=== PATIENT | female | born 1980 | race Caucasian/White ===

== ENCOUNTER → 2020-09-18 16:55 | Outpatient (CLI) | payer SELFPAY ==
[2020-09-18 18:21] LABS: hCG Titer Quant., Serum 786 mIU/mL (1-3)
== END ==
PROVIDERS: Visit Provider Obstetrics & Gynecology
DX: Z32.01 Encounter for pregnancy test, result positive (principal)
CPT/HCPCS: 36415; 84702; 86850; 86900; 86901

== ENCOUNTER → 2020-09-20 16:25 | Outpatient (CLI) | payer SELFPAY ==
[2020-09-20 18:17] LABS: hCG Titer Quant., Serum 892 mIU/mL (1-3)
== END ==
PROVIDERS: Obstetrics & Gynecology; PCP Family Medicine; Referring Provider Family Medicine; Visit Provider Family Medicine
DX: N91.2 Amenorrhea, unspecified (principal)
CPT/HCPCS: 36415; 84702